=== PATIENT | female | born 1940 | race Hispanic/Latino ===

== ENCOUNTER 2016-12-18 12:57 | Outpatient (CLI) | payer BC, MEDICARE | END 2016-12-18 12:58 | disposition home or self-care (01) | LOC: CARD 12:57 → ECHO 12:57 → CARD 12:58 | PROVIDERS: ATTEND Internal Medicine | DX: I34.1 Nonrheumatic mitral (valve) prolapse (principal); I35.0 Nonrheumatic aortic (valve) stenosis; I70.0 Atherosclerosis of aorta; R01.1 Cardiac murmur, unspecified | CPT/HCPCS: 93306 ==